=== PATIENT | male | born 1990 | race Hispanic/Latino ===

== ENCOUNTER 2020-01-23 20:50 | Emergency (ER) | payer SELFPAY ==
--- NOTE | ~2020-01-23 | CT_ITS ---
EXAMINATION: CT brain wo con EXAM DATE: 01/23/2020 21:15 INDICATION: Head injury. Syncope. TECHNIQUE: Spiral CT of the head was performed without contrast. Axial, coronal and sagittal images were reviewed. The dose-length product (DLP) for this examination was 681.00 mGy-cm. The exposure w as tailored according to patient size, and iterative reconstruction (ASIR) was used as additional dos e reduction technique. There is no prior study for comparison. FINDINGS: There is no acute intraparenchymal hemorrhage. No evidence of intraparenchymal brain mass lesion. No evidence of acute infarction. There is no mass effect or midline shift. The ventricles are normal in size. There are no extra-axial collections. There are no acute calvarial fractures. T he orbits are unremarkable. Soft tissue is unremarkable. There is mild right maxillary sinus mucope riosteal thickening with air-fluid level demonstrated, mild bilateral ethmoid periosteal thickening. IMPRESSION: 1. No acute intracranial findings. Reviewed, dictated and finalized at location [facility].
--- NOTE | ~2020-01-23 | XR_ITS ---
EXAMINATION: XR chest 2V EXAM DATE: 01/23/2020 21:22 INDICATION: Syncope. TECHNIQUE: Frontal and lateral projections of the chest obtained and reviewed. Comparison is made to prior examination from 02/10/2019. FINDINGS: The lungs are clear. There are no pleural effusions. The cardiomediastinal silhouette is within normal limits. There is no pneumothorax suspected. The bones and soft tissues are unremarkab le. IMPRESSION: Unremarkable chest x-ray exam. Reviewed, dictated and finalized at location [facility].
[2020-01-23 20:50] VITALS: BP 127/76; PULSE 122; RESP 12; TEMP 36.4; O2SAT 94
--- NOTE | 2020-01-23 20:52 | ED.OVERDOSE ---
HPI - Overdose General Chief Complaint: Overdose Stated Complaint: poss o.d. Time Seen by Provider: 01/23/20 20:55 Source: patient, family, EMS and RN notes reviewed Mode of arrival: EMS Limitations: no limitations History of Present Illness HPI Narrative: Pt is a 29 y/o male who presents to the ED via EMS with c/o possible overdose. He notes that he has been under increased stress recently with his being in correction. Pt states that he has a Hx of methamphetamine use, and notes that he last used IV methamphetamine around 14:00 this afternoon. He states that he had no intent of harming himself. He states that he was walking around crying while talking on the phone with his this evening when he suddenly fell and struck his face on a bookshelf. EMS notes that the pt's [id number] stated the pt lost consciousness for roughly 5 minutes. They note that the pt was alert and oriented upon their arrival. Pt currently reports depression, but denies any headache, neck pain, vision changes, changes in hearing, CP, SOB, nausea, or vomiting. MD complaint: accidental overdose Substance Ingested methamphetamine: Time of Ingestion: 14:00 How Overdose Was Discovered: family/friend present at time Context: Accidental Overdose: uncertain what happened Associated symptoms: depression Treatments Prior to Arrival: none Related Data Allergies Allergy/AdvReac Type Severity Reaction Status Date / Time No Known Allergies Allergy Unverified 01/23/20 20:58 Review of Systems Review of Systems: All systems reviewed & are unremarkable except as noted in HPI and below Eyes: Eyes: Denies change in vision ENT: Denies other (change in hearing) Cardiovascular: Cardiovascular: Denies chest pain Respiratory: Respiratory: Denies dyspnea Gastrointestinal: Gastrointestinal: Denies nausea and Denies vomiting Musculoskeletal: Musculoskeletal: Denies neck pain Neurologic: Denies headache(s) and Reports other (LOC (per family)) Psychiatric: Psychiatric: Reports depression PMFSH Past Medical History Medical History Asthma Back pain Hernia Surgical History Surgical History Hx of hernia repair Family History Family History (Updated 06/12/16 @ 23:21 by DOCTOR UNKNOWN) Father Cerebrovascular accident, Onset Age: 53 Family history of type 2 diabetes mellitus Patient's father is Mother Hypertension Patient's mother is in good health Family history of diabetes mellitus in first degree relative Sibling Patient's sister is in good health Patient's brother is in good health Social History Social History Smoking status: Smoker, status unknown Alcohol intake: current Substance use type: amphetamines Exam Narrative: Exam Narrative: GENERAL: Well-appearing, well-nourished, and in no acute distress. HEAD: Normocephalic, atraumatic. EYES: PERRL and EOMI. ENT: Mucous membranes moist. CHEST: Clear to auscultation. No respiratory distress. HEART: Tachycardic and regular. Normal peripheral pulses. ABDOMEN: Soft, nontender, nondistended. EXTREMITIES: Normal range of motion. No edema. NEURO: No focal deficits. Alert and oriented x3. PSYCH: Normal mood and affect. Course Course Emergency Course: Resting comfortably. Will d/c home. Vital Signs Vital signs: Vital Signs Temperature 97.6 F 01/23/20 20:50 Pulse Rate 122 H 01/23/20 20:50 Respiratory Rate 12 01/23/20 20:50 Blood Pressure 127/76 01/23/20 20:50 Pulse Oximetry 94 01/23/20 20:50 Temperature 97.6 F 01/23/20 20:50 Pulse Rate 101 H 01/23/20 22:27 Respiratory Rate 15 01/23/20 22:27 Blood Pressure 115/96 H 01/23/20 22:27 Pulse Oximetry 97 01/23/20 22:27 MDM - Overdose Lab Data Result diagrams: 01/23/20 22:39 01/23/20 22:39 Labs: Lab
--- NOTE | 2020-01-23 20:56 | ECG_ITS ---
Measurements Intervals [place] Rate: 106 P: 27 MD: 146 QRS: 19 QRSD: 98 T: 7 QT: 334 QTc: 444 Interpretive Statements SINUS TACHYCARDIA VOLTAGE CRITERIA FOR LVH MINIMAL Q WAVES- LATERAL LEADS BASELINE ARTIFACT- III, V5 ABNORMAL ECG Electronically Signed On 01-24-2020 7:05:26 CDT by Ajith Hernández D.O.
[2020-01-23 21:00] VITALS: BP 127/80; PULSE 116
[2020-01-23] MEDS: SODIUM CHLORIDE 0.9% IV 1,000 ML 999 ML IV CONT (21:14)
[2020-01-23 21:15] VITALS: RESP 12
--- NOTE | 2020-01-23 21:58 | PC.NURSE ---
pt attempting to void
[2020-01-23 22:20] VITALS: BP 119/81; PULSE 98
[2020-01-23 22:22] VITALS: BP 115/96; PULSE 108
--- NOTE | 2020-01-23 22:26 | PC.NURSE ---
Unable to obtain blood at this time because the patient was in the bathroom for the past 47 mins.
[2020-01-23 22:27] VITALS: BP 115/96; PULSE 101; RESP 15; O2SAT 97
--- NOTE | 2020-01-23 22:37 | PC.NURSE ---
pt still attempting to void asked if a straight cath was okay pt refusing. edp notified. edp instructed RN to bladder scan pt.
[2020-01-23 22:51] LABS: Basophils Percent Auto 0.2 % (0.2-1.2); Eosinophils Absolute Auto 0.1 K/mm3 (0-0.3); Eosinophils Percent Auto 0.9 % (0-4.4); Hemoglobin 14.1 g/dL (14.0-18.0); Immature Granulocyte Absolute 0.02 K/mm3 (0.00-0.031); Immature Granulocyte Percent A 0.3 % (0-0.5); Lymphocytes Absolute Auto 1.19 K/mm3 (0.9-3.2); Lymphocytes Percent Auto 18.3 % (18.3-44.2); Mean Corpuscular HGB Conc 31.3 g/dl (32-36); Mean Corpuscular Hemoglobin 26.9 pg (26-34); Mean Corpuscular Volume 85.7 fl (80-100); Mean Platelet Volume 11.7 fl (7.4-10.4); Monocytes Absolute Auto 0.6 K/mm3 (0.1-0.6); Monocytes Percent Auto 8.9 % (2.6-8.5); Neutrophils Absolute Auto 4.6 K/mm3 (1.3-6.7); Neutrophils Percent Auto 71.4 % (45.5-73.1); Platelet Count Result 183 k/mm3 (150-375); Red Blood Count 5.25 M/mm3 (4.6-6.20); White Blood Count 6.5 K/mm3 (4.5-10.0)
[2020-01-23 23:00] LABS: Blood Urea Nitrogen 17 mg/dL (9-20); Calcium 8.6 mg/dL (8.4-10.2); Carbon Dioxide 33 mmol/L (22-30); Chloride 98 mmol/L (98-107); Estimated Glomerular Filt Rate > 60; Glucose 112 mg/dL (75-110); Potassium 3.8 mmol/L (3.4-5.0); Sodium 138 mmol/L (137-145)
[2020-01-23 23:59] LABS: Ethanol < 10 mg/dL (<10)
[2020-01-24] VITALS: BP 105/78; PULSE 86; RESP 12; O2SAT 98
[2020-01-24 00:13] LABS: Barbiturate Screen Urine Negative (Negative); Benzodiazepines Screen Urine Positive (Negative)
[2020-01-24 00:22] LABS: Cannabinoid Screen Urine Negative (Negative); Cocaine Screen Urine Negative (Negative); Methadone Screen Urine Negative (Negative); Opiate Screen Urine Negative (Negative); Phencyclidine Screen Urine Negative (Negative)
[2020-01-24 00:30] VITALS: BP 115/73; PULSE 106; RESP 12; O2SAT 99
[2020-01-24 00:52] LABS: Amphetamine Screen Urine Positive (Negative)
== END 2020-01-24 00:30 | disposition home or self-care (01) ==
PROVIDERS: Emergency Provider Emergency Medicine; PCP Otolaryngology
DX: R55 Syncope and collapse (principal); J45.909 Unspecified asthma, uncomplicated; F15.10 Other stimulant abuse, uncomplicated; R00.0 Tachycardia, unspecified; R94.31 Abnormal electrocardiogram [ECG] [EKG]
CPT/HCPCS: 36415; 70450; 71046; 80048; 80307; 85025; 93005; 96360; 99284; J7030

== ENCOUNTER 2020-01-28 02:42 | Emergency (ER) | payer SELFPAY ==
--- NOTE | ~2020-01-28 | CT_ITS ---
EXAMINATION: CT brain wo con DATE: 01/28/2020 04:04 INDICATION: Altered level of consciousness. Recurrent syncope, dizziness. TECHNIQUE: Computed tomography (CT) of the head was performed without intravenous contrast. The mA wa s adjusted according to patient size. Iterative reconstruction technique was employed. Exam dose: 68 1.00 mGy-cm total exam DLP. COMPARISON: 01/23/2020 CT brain FINDINGS: No intracranial mass lesion or hemorrhage or cerebrovascular accident, midline shift or mas s effect is evident. No subdural or epidural hematoma is detected. Normal ventricular size. The orbit al contents appear normal. There is a 1 cm mucous retention cyst or polyp of the left maxillary sinus. There is moderate mucoper iosteal thickening or air-fluid level of the right maxillary sinus. There is soft tissue thickening of the ethmoid air cells bilaterally. The frontal and sphenoid sinuses are unremarkable. The mastoid air cells are normally developed and a erated bilaterally. IMPRESSION: No acute intracranial abnormality Bilateral maxillary sinus disease and patchy soft tissue thickening of the ethmoid air cells Reviewed, dictated and finalized at [facility]. Reviewed, dictated and finalized at location A. IMPRESSION: No acute intracranial abnormality Bilateral maxillary sinus disease and patchy soft tissue thickening of the ethm oid air cells
--- NOTE | ~2020-01-28 | XR_ITS ---
XR chest 2V DATE: 01/28/2020 04:11 INDICATION: Shortness of breath TECHNIQUE: PA and lateral views COMPARISON: 01/23/2020 PA and lateral chest FINDINGS: Normal heart size. No hilar or mediastinal enlargement. No pulmonary infiltrate or consolid ation, pleural effusion or pulmonary vascular congestion or pneumothorax. IMPRESSION: No active cardiopulmonary disease Reviewed, dictated and finalized at location A.
[2020-01-28 02:46] VITALS: BP 132/91; PULSE 92; RESP 18; TEMP 36.3; O2SAT 98
--- NOTE | 2020-01-28 03:48 | ECG_ITS ---
Measurements Intervals [place] Rate: 81 P: -12 [place]: 132 QRS: 15 QRSD: 97 T: 4 QT: 366 QTc: 426 Interpretive Statements SINUS RHYTHM VOLTAGE CRITERIA FOR LVH BORDERLINE ECG Electronically Signed On 01-28-2020 9:35:07 CDT by Ajith Hernández D.O.
--- NOTE | 2020-01-28 04:00 | ED.DIZZY ---
HPI - Dizziness General Chief Complaint: Dizziness Stated Complaint: POSSIBLE SEIZURE Time Seen by Provider: 01/28/20 03:25 Source: patient and other Mode of arrival: ambulatory Limitations: no limitations History of Present Illness HPI Narrative: Patient is a 29-year-old male who presents to the emergency department with report of dizziness and what sounds like syncopal episodes. Significant other reports patient had onset of symptoms approximately 1/2 to 2 hours ago. She at first thought perhaps he might have a seizure, but denies him having any shaking or seizure-like behavior. She states he had episodes where he appeared to be unconscious for approximately 20 seconds at a time and several of these episodes occurred. Patient reports feeling dizzy. Patient advised staff on arrival he had not been able to sleep much recently due to increased stress. Patient of note had been in the emergency department 5 days ago for possible overdose on methamphetamines. At the time of his ED visit 5 days ago, he reported having an episode where he fell and struck his head and lost consciousness for a few minutes. Patient also reports having had nausea and vomiting which he states are now improved. He denies any diarrhea. He reports some mild shortness of breath. He denies any chest pain or headache. MD elicited complaint: dizziness, lightheadedness and other (syncope) Onset (ago): hour(s) Timing: sudden onset and intermittent Related Data Allergies Allergy/AdvReac Type Severity Reaction Status Date / Time No Known Allergies Allergy Unverified 01/23/20 20:58 Review of Systems Review of Systems: All systems reviewed & are unremarkable except as noted in HPI and below PMFSH Past Medical History Medical History Asthma Back pain Hernia Surgical History Surgical History Hx of hernia repair Family History Family History (Updated 06/12/16 @ 23:21 by DOCTOR UNKNOWN) Father Cerebrovascular accident, Onset Age: 53 Family history of type 2 diabetes mellitus Patient's father is Mother Hypertension Patient's mother is in good health Family history of diabetes mellitus in first degree relative Sibling Patient's sister is in good health Patient's brother is in good health Social History Social History (Updated 01/28/20 @ 04:11 by Pat Garvin MD) Smoking status: Current every day smoker Alcohol intake: current Substance use type: amphetamines Gender identity (if verbalized by the patient): Male Exam Const: General: cooperative, no acute distress and tired appearing Nutritional Appearance: well nourished HENMT: Mouth: Yes lip normal and Yes moist mucous membranes Eyes: Pupils: Equal, round and reactive pupils present Resp: Effort & Inspection: normal respiratory effort Auscultation: clear to auscultation bilaterally Cardio: Rate: regular rate Rhythm: regular rhythm GI: GI Palp: Yes Soft to palpation and No Tenderness to palpation present (GI) Auscultation: normal bowel sounds Skin: General skin exam: normal color Neuro: General: moves all extremities and no focal motor deficits Cognition (Neuro): normal cognition Speech: normal speech Extrem: General: normal to inspection, full ROM and no clubbing, cyanosis or edema Psych: Mental Status: mental status grossly normal Affect: Blunted affect present Attitude: cooperative Course Reevaluation(s) Reevaluation #1: Patient notified charge nurse he was leaving. Patient signed out AGAINST MEDICAL ADVICE before I had opportunity to review test results and reassess. Date: 01/28/20 Time: 04:44 Vital Signs Vital signs: Vital Signs Temperature 97.3 F L 01/28/20 02:46 Pulse Rate 92 01/28/20 02:46 Respiratory Rate 18 01/28/20 02:46 Blood Pressure 132/91 H 01/28/20 02:46 Pulse Oximetry 98 01/28/20 02:4
[2020-01-28 04:26] LABS: Basophils Percent Auto 0.3 % (0.2-1.2); Eosinophils Absolute Auto 0.1 K/mm3 (0-0.3); Eosinophils Percent Auto 1.1 % (0-4.4); Hematocrit 46.5 % (42.0-52.0); Immature Granulocyte Absolute 0.03 K/mm3 (0.00-0.031); Immature Granulocyte Percent A 0.4 % (0-0.5); Lymphocytes Absolute Auto 1.65 K/mm3 (0.9-3.2); Lymphocytes Percent Auto 20.8 % (18.3-44.2); Mean Corpuscular HGB Conc 32.3 g/dl (32-36); Mean Corpuscular Hemoglobin 27.1 pg (26-34); Mean Corpuscular Volume 84.1 fl (80-100); Mean Platelet Volume 11.7 fl (7.4-10.4); Monocytes Absolute Auto 0.8 K/mm3 (0.1-0.6); Neutrophils Absolute Auto 5.3 K/mm3 (1.3-6.7); Neutrophils Percent Auto 67.4 % (45.5-73.1); Platelet Count Result 194 k/mm3 (150-375); Red Blood Count 5.53 M/mm3 (4.6-6.20); Red Cell Distribution Width 13.2 % (11.5-14.5); White Blood Count 7.9 K/mm3 (4.5-10.0)
[2020-01-28 04:33] VITALS: BP 121/87; PULSE 91
[2020-01-28 04:34] VITALS: BP 117/92; BP 124/95; PULSE 82; PULSE 92
[2020-01-28 04:35] VITALS: BP 124/95; PULSE 88; RESP 18; O2SAT 98
--- NOTE | 2020-01-28 04:35 | PC.NURSE ---
Pt states he will not be giving us a urine sample.
[2020-01-28 04:37] LABS: Creatine Kinase 176 U/L (55-170)
[2020-01-28 04:39] LABS: Alanine Aminotransferase 190 U/L (4-50); Albumin Level 4.5 g/dL (3.5-5.1); Alkaline Phosphatase 157 U/L (38-126); Aspartate Amino Transferase 121 U/L (17-59); Bilirubin,Total 1.1 mg/dL (0.2-1.3); Blood Urea Nitrogen 15 mg/dL (9-20); Calcium 9.5 mg/dL (8.4-10.2); Carbon Dioxide 31 mmol/L (22-30); Chloride 100 mmol/L (98-107); Estimated Glomerular Filt Rate > 60; Ethanol < 10 mg/dL (<10); Glucose 104 mg/dL (75-110); Magnesium 2.1 mg/dL (1.6-2.3); Potassium 3.7 mmol/L (3.4-5.0); Sodium 138 mmol/L (137-145)
== END 2020-01-28 04:47 | disposition left against medical advice (07) ==
PROVIDERS: Emergency Provider Emergency Medicine; PCP Otolaryngology
DX: R42 Dizziness and giddiness (principal); J45.909 Unspecified asthma, uncomplicated; F17.200 Nicotine dependence, unspecified, uncomplicated; R94.31 Abnormal electrocardiogram [ECG] [EKG]
CPT/HCPCS: 36415; 70450; 71046; 80053; 80307; 82550; 83735; 84443; 85025; 93005; 99284